=== PATIENT | female | born 1980 | race Caucasian/White ===

== ENCOUNTER 2022-11-28 10:21 | Outpatient (RCR) | payer OTHER | END 2022-12-24 | disposition home or self-care (01) | PROVIDERS: ATTEND Family Medicine | DX: M43.6 Torticollis (principal); Z87.828 Personal history of other (healed) physical injury and trauma ==

== ENCOUNTER 2023-01-01 13:44 | Outpatient (RCR) | payer OTHER | END 2023-01-23 | disposition home or self-care (01) | PROVIDERS: ATTEND Family Medicine | DX: M54.2 Cervicalgia (principal); M43.6 Torticollis; M54.6 Pain in thoracic spine; M54.50 Low back pain, unspecified; Z87.828 Personal history of other (healed) physical injury and trauma ==